=== PATIENT | male | born 1960 | race Caucasian/White ===

== ENCOUNTER 2017-02-18 17:49 | Observation (INO) ==
[2017-02-18] MEDS ORDERED: SALINE FLUSH 10ml SYRINGE IVF PRN (18:09)
[2017-02-18] MEDS ORDERED: CALCIUM GLUCONATE 1,000 MG in NS 50 ML IV ONE (18:10)
[2017-02-18] MEDS ORDERED: DEXTROSE 50% SYRINGE 50ml (1 AMP) IVP ONE ×2 (18:12→20:19)
[2017-02-18] MEDS ORDERED: INSULIN REGULAR, HUMAN 100 UNIT/ML INJECTION IVP ONE (18:12)
--- NOTE | 2017-02-18 18:33 | Emergency Department Report ---
General Adult HPI - General Chief complaint: Dizziness Stated complaint: Abnormal lab work Time Seen by Provider: 02/18/17 18:09 Source: patient Mode of arrival: ambulatory Limitations: no limitations - History of Present Illness HPI narrative: However the patient had been shown to have mild hyperkalemia. With past 2 weeks the patient seems to have been doing much better, has been drinking more fluid, and trying to stay out of the heat as much as possible. 2 days ago the patient noticed that his blood pressure was significantly low, he stopped his medication , and saw his primary care physician at [facility]. On the check the patient was found to have "severely elevated potassium," he should have follow- up lab to verify his elevated potassium done today. Today's level showed potassium at 7.0, creatinine 3.0. Patient was called immediately this afternoon and told to go immediately to the ER. His primary care physician apparently has not contacted the ER, as no one in the ER had noticed that the patient was coming or head abnormal lab values. - Related Data Home Medications Medication Instructions Recorded Confirmed Metformin [Glucophage] 1,000 mg PO BID 02/04/17 02/18/17 glipiZIDE [Glipizide] 10 mg PO BID 02/04/17 02/18/17 Amitriptyline [Elavil] 25 mg PO HS 02/18/17 02/18/17 Canagliflozin [Invokana] 100 mg PO DAILY 02/18/17 02/18/17 Ibuprofen 600 mg PO Q6H PRN 02/18/17 02/18/17 Lisinopril [Prinivil] 20 mg PO DAILY 02/18/17 02/18/17 Mv-Mins/Folic/Lycopene/Ginkgo [One 1 tab PO DAILY 02/18/17 02/18/17 Daily For Men 50+ Adv Tab] Allergies Allergy/AdvReac Type Severity Reaction Status Date / Time No Known Drug Allergies Allergy Unknown Verified 02/18/17 18:08 Review of Systems All systems: reviewed and negative except as stated PFSH Patient Stated Medical History Cataracts Yes: FORMING Dental Problems Yes: DENTAL CARIES, MISSING TEETH Hearing Loss Yes: SOME Hypertension Yes Other Cardiology Yes: ENLARGED HEART Bronchitis Yes: 2-3 TIMES Diabetes Mellitus Type 2 Yes Hx Kidney Stones Yes: MULTIPLE Other Musculoskeletal Yes: WRIST FX Surgical History: Negative - Social History Smoking status: Current every day smoker Physical Exam - Limitations Limitations: no limitations - General General appearance: alert (thin, moderate health, with poor dentition, and patient is obviously a smoker) - Normal Exams: Head:: Normocephalic without trauma Eyes:: Pupils are PERRLA w/ EOMI, No scleral icterus, irritation, or foreign bodies noted ENMT:: No facial trauma, nasal exudates, pharyngeal erythema, or exudates are noted Neck:: Full range of motion, without adenopathy, JVD, bruits or thyromegaly Chest/Respirations:: Clear all apple, with good airflow, and symmetry bilaterally Cardiovascular:: Regular rate and rhythm, without murmur or gallop, Pulses 2+ all extremities, capillary refill, <2 seconds all extremities Abdomen:: Bowel sounds positive, soft, non-tender, non-distended, no hepatosplenomegaly, masses or bruits noted Lymphatic:: No lymphadenopathy, or lymphedema noted Musculoskeletal:: No tenderness, or deformity noted, good range of motion, all extremities Integumentary:: No rashes, hives, or bruising noted, hair and nails, without abnormality Neurological:: Patient is alert, and oriented, cranial nerves, motor/sensory/ cerebellar, exams w/o gross deficits, to observation Psychiatric:: Patient exhibits, appropriate attention, emotion and affect Course Vital Signs Temperature 98.3 F 02/18/17 18:05 Pulse Rate 105 H 02/18/17 18:05 Respiratory Rate 16 02/18/17 18:05 Blood Pressure 130/71 02/18/17 18:05 Pulse Oximetry 98 02/18/17 18:05 Temperature 98.3 F 02/18/17 18:05 Pulse Rate 82 02/18/17 20:40 Respiratory Rate 18 02/18/17 19:37 Blood Pressure 120/68 02/18/17 20:40 Pulse Oximetry 100 02/18/17 20:40 Medical Decision Making - [facility] Narrative Medical decision making narrative: D50 glucose load with 10 units of regular insulin IV, 1000 mg calcium gluconate , an EKG is obtained EKG - normal sinus rhythm without ischemia, ectopy, or infarction, no T-wave spikes Patient had the above medications, his blood sugar did drop down into the 40s, he was given an additional detail 25, and some pudding. Recheck of the patient's electrolytes show significant improvement with potassium 4.7, creatinine 2.5 I discussed the patient with Dr. Jerardo Bowers, who will admit the patient for overnight observation, and continued medical therapy for hyperkalemia and renal insufficiency - Lab Data Result diagrams: 02/18/17 20:00 Lab Results 02/18/17 02/18/17 02/18/17 Range/Units 19:28 20:00 20:16 Turbidity < 20 (0-20) Sodium 140 (134-144) MEQ/L Potassium 4.7 D (3.6-5) MEQ/L Chloride 110 H (98-107) MEQ/L Carbon Dioxide 23 (22-30) MEQ/L Anion Gap 7 (5-15) MEQ/L BUN 43.0 H (9-20) MG/DL Creatinine 2.5 H D (0.8-1.5) MG/DL GFR Calculation 27 BUN/Creatinine Ratio 17 (6-26) RATIO Glucose 77 (75-110) MG/DL Glucometer 188 49 (65-110) mg/dL Calculated Osmolality 279 (261-280) MOSM/KG Calcium 11.5 H (8.4-10.2) MG/DL Icterus Index < 2 (0-7) Specimen Hemolysis < 15 (0-25) Disposition Clinical Impression: Hyperkalemia, Renal insufficiency Disposition: 02 To OBS [facility] Condition: Improved Prescriptions: No Action Metformin [Glucophage] 1,000 mg PO BID glipiZIDE [Glipizide] 10 mg PO BID Canagliflozin [Invokana] 100 mg PO DAILY Lisinopril [Prinivil] 20 mg PO DAILY Mv-Mins/Folic/Lycopene/Ginkgo [One Daily For Men 50+ Adv Tab] 1 tab PO DAILY Amitriptyline [Elavil] 25 mg PO HS Ibuprofen 600 mg PO Q6H PRN PRN Reason: Pain Referrals: Beatrice Hassan, LEADED GLASS INSTALLER [Family Provider] - - Seen By: physician
[2017-02-18] MEDS ORDERED: NS 1,000 ML IV ONE (18:37)
[2017-02-18] MEDS ORDERED: ONDANSETRON 4 MG/2 ML INJECTION IVP PRN (21:39)
[2017-02-18] MEDS ORDERED: SODIUM POLYSTYRENE SULFONATE 15 GM/60 ML BOTTLE PO ONE (21:39)
[2017-02-18] MEDS ORDERED: AMITRIPTYLINE 50 MG TABLET PO SCH (22:00)
[2017-02-18] MEDS ORDERED: INSULIN ASPART 100unit/ml INJECTION SQ PRN (22:13)
[2017-02-18] MEDS: NS 1,000 ML IV SCH (22:14)
--- NOTE | 2017-02-18 22:18 | History & Physical Report ---
History of Present Illness Date: 02/18/17 Chief complaint: weakness HPI: Please note that the patient was seen via telemedicine with nursing assistance on 02/18/2017 Mr. Zuluaga is a pleasant 56yo man with h/o DM2 for 10 years on oral agents. HTN, tobacco abuse who has been feeling weaker over the last 2 weeks with cessation of lisinopril by PCP by visit yesterday as SBP 90s. Labs checked then and repeated today yielded K 7 and Creatinine 3 leading to ED referral, and the patient was given 1L NS, Calcium gluconate and 10u reg insulin with an amp of D50 prior to repeat lab check. 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 No fevers, chills, nausea, stool change but decreased urine. Drinks at least a half gallon of water every day with no new polyuria with him not checking CBGs normally. CP a couple of weeks ago and see that info. No CP or syncope the last days. Weak but no UMANZOR. 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 [employer] Medications Home Medications Medication Instructions Recorded Confirmed Type Metformin [Glucophage] 1,000 mg PO BID 02/04/17 02/18/17 History glipiZIDE [Glipizide] 10 mg PO BID 02/04/17 02/18/17 History Amitriptyline [Elavil] 25 mg PO HS 02/18/17 02/18/17 History Canagliflozin [Invokana] 100 mg PO DAILY 02/18/17 02/18/17 History Ibuprofen 600 mg PO Q6H PRN 02/18/17 02/18/17 History Lisinopril [Prinivil] 20 mg PO DAILY 02/18/17 02/18/17 History Mv-Mins/Folic/Lycopene/Ginkgo [One 1 tab PO DAILY 02/18/17 02/18/17 History Daily For Men 50+ Adv Tab] Allergies Allergy/AdvReac Type Severity Reaction Status Date / Time No Known Drug Allergies Allergy Unknown Verified 02/18/17 18:08 Exam Vital Signs: Temperature 98.3 F 02/18/17 18:05 Pulse Rate 81 02/18/17 21:03 Respiratory Rate 18 02/18/17 19:37 Blood Pressure 120/68 02/18/17 20:40 Pulse Oximetry 100 02/18/17 20:40 Telemetry Rhythm: Sinus Rhythm Height: 1.83 m Weight: 69.7 kg - Constitutional Present: no acute distress, well nourished, thin - Routine HEENT Exam Head: Present: normocephalic Eye: Present: EOMI - Routine Neck Exam Present: full ROM - Routine Respiratory Exam Present: CTA bilaterally. Absent: respiratory distress, wheezes - Routine Cardiovascular Exam Present: RRR, S1, S2 - Routine Abdominal Exam Present: normoactive bowel sounds, non distended - Routine Neurological Exam Present: alert, oriented X3, CN II-XII intact Results - Labs CBC & Chem 7: 02/18/17 20:00 Assessment and Plan (1) Renal insufficiency Current visit: Yes Status: Acute 02/18/17 22:22 obs admit with repeat am labs after IVF overnight and no more lisinopril. 0.9 creat 4 years ago note. CKD or ARF? UA now pending with unlikely ATN. (2) Hyperkalemia Current visit: Yes Status: Acute 02/18/17 22:22 Kayexelate now and repeat off lisinopril (3) DM2 (diabetes mellitus, type 2) Current visit: Yes Status: Acute 02/18/17 22:23 check A1C and hold orals with diet, ssi, CBGs for now. (4) HTN (hypertension) Current visit: Yes Status: Acute 02/18/17 22:23 monitor off agents (5) Tobacco abuse Current visit: Yes Status: Acute 02/18/17 22:24 must stop Resuscitation Status: Full Code Hospital Course Summary Disclaimer: The visit summary below is not to be considered part of the above Progress Note.
[2017-02-18 22:47] VITALS: O2SAT 98
[2017-02-18 22:51] VITALS: BMI 21.0
[2017-02-19] MEDS ORDERED: SODIUM POLYSTYRENE SULFONATE 15 GM/60 ML BOTTLE PO ONE ×2 (06:22→11:00)
[2017-02-19] MEDS: NS 1,000 ML IV SCH (07:53)
[2017-02-19 08:11] VITALS: BP 112/65; PULSE 69; RESP 16; TEMP 97.2
--- NOTE | 2017-02-19 11:33 | Ultrasound Report ---
Indication: EVELIO PROCEDURE: US renal BI: Encounter: Initial Comparison: None Technique: Grayscale and color Doppler sonographic imaging of both kidneys was performed. FINDINGS: Both kidneys are present with normal cortical thickness and echogenicity. No evidence for collecting system dilatation, contour deforming mass, nephrolithiasis, or abnormal perinephric fluid collection. The right kidney measures 10.5 cm in length, and the left kidney measures 9.5 cm in length. IMPRESSION: Normal renal sonogram. .
[2017-02-19] MEDS ORDERED: NICOTINE 14 MG PATCH TD PRN (12:07)
[2017-02-19] MEDS ORDERED: NICOTINE PATCH REMOVAL TD PRN (12:22)
--- NOTE | 2017-02-19 14:35 | Discharge Summary ---
Discharge Information Date of admission: 02/18/17 21:10 Anticipated date of discharge: 02/19/17 Attending Physician: Moreno Cannon MD Primary care physician: Beatrice Hassan APRN Consults: 02/19/17 Dietary Consult [CONS] Routine - Discharge Diagnosis (1) Acute kidney injury Problem Details: Secondary to JOHNNA use and dehydration from hot work enviornment ; no underlying CKD Status: Resolved (2) Hyperkalemia Problem Details: POA Status: Resolved (3) DM2 (diabetes mellitus, type 2) Qualifiers: Diabetes mellitus complication status: without complication Diabetes mellitus fdc insulin use: without termite helper use Qualified Code(s): E11.9 - Type 2 diabetes mellitus without complications Status: Chronic (4) HTN (hypertension) Qualifiers: Hypertension type: essential hypertension Qualified Code(s): I10 - Essential (primary) hypertension Status: Chronic (5) Tobacco abuse Status: Chronic - Laboratory Labs: 02/19/17 04:28 02/19/17 13:34 - Radiology Radiology: Date of Exam: 02/19/17 Indication: EVELIO PROCEDURE: US renal BI Technique: Grayscale and color Doppler sonographic imaging of both kidneys was performed. FINDINGS: Both kidneys are present with normal cortical thickness and echogenicity. No evidence for collecting system dilatation, contour deforming mass, nephrolithiasis, or abnormal perinephric fluid collection. The right kidney measures 10.5 cm in length, and the left kidney measures 9.5 cm in length. IMPRESSION: Normal renal sonogram. History of Present Illness HPI: Please note that the patient was seen via telemedicine with nursing assistance on 02/18/2017 Mr. Zuluaga is a pleasant 56yo man with h/o DM2 for 10 years on oral agents. HTN, tobacco abuse who has been feeling weaker over the last 2 weeks with cessation of lisinopril by PCP by visit yesterday as SBP 90s. Labs checked then and repeated today yielded K 7 and Creatinine 3 leading to ED referral, and the patient was given 1L NS, Calcium gluconate and 10u reg insulin with an amp of D50 prior to repeat lab check. 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 No fevers, chills, nausea, stool change but decreased urine. Drinks at least a half gallon of water every day with no new polyuria with him not checking CBGs normally. CP a couple of weeks ago and see that info. No CP or syncope the last days. Weak but no UMANZOR. For complete details of the H&P refer to that document. Objective Vital signs: Temperature 97.2 F 02/19/17 08:10 Pulse Rate 69 02/19/17 08:10 Respiratory Rate 16 02/19/17 08:10 Blood Pressure 112/65 02/19/17 08:10 Pulse Oximetry 98 02/19/17 01:44 Oxygen Delivery Method Room Air Weight: 69.2 kg Hospital Course This is a general summary of the patient's hospital course. For more details refer to the complete medical record. Hospital course: 02/18 Obs admit with repeat am labs after IVF overnight and no more lisinopril. 0.9 creat 4 years ago note. CKD or ARF? UA now pending with unlikely ATN. 02/19 Creatinine decreasing. Will check renal US due to EVELIO. With repeat K increasing, will repeat Kayexelate and recheck lab this afternoon. Encourage continued increased fluid consumption at work (pt will be having work change which should decrease risk for heat exhaustion). RT for tobacco cessation. Renal US normal. Repeat Creatinine decreased to 1.1 with potassium decreased to 4.6. Pt taking oral in well. Breathing well. Vitals stable. Will d/c to home in stable condition. Hold lisinopril. Keep apt on Wens 02/24 - recommend repeat BMP at that time. Monitor blood pressure. Discharge Plan - Med Rec/Dispo Referrals/Follow Up: Beatrice Hassan, NURSING EDUCATION CONSULTANT [Family Provider] - (Keep apt scheduled on 02/24 - recommend recheck BMP at that time. ) [place] Instructions: Acute Kidney Injury (GEN) Additional Instructions: Stop lisinopril and ibuprofen. Prescriptions: Continue Metformin [Glucophage] 1,000 mg PO BID glipiZIDE [Glipizide] 10 mg PO BID Canagliflozin [Invokana] 100 mg PO DAILY Mv-Mins/Folic/Lycopene/Ginkgo [One Daily For Men 50+ Adv Tab] 1 tab PO DAILY Amitriptyline [Elavil] 25 mg PO HS Discontinued Lisinopril [Prinivil] 20 mg PO DAILY Ibuprofen 600 mg PO Q6H PRN PRN Reason: Pain Discharge Instructions/Outpatient Orders: Final Provider Discharge Instructions Location: Determined By Patient - Disposition 01 Discharged Home, Self-Care
[2017-02-19] MEDS ORDERED: AMITRIPTYLINE 25 MG TABLET PO SCH (22:00)
== END 2017-02-19 15:40 | disposition home or self-care (01) ==
LOC: ED 17:49 → MED 17:49
PROVIDERS: ADMIT Hospitalist; ATTEND Hospitalist